=== PATIENT | male | born 1990 | race African-American/Black ===

== ENCOUNTER 2019-08-31 22:09 | Inpatient (IN) | payer MEDICAID, OTHER ==
[~2019-08-31] VITALS: Ht 180.3 cm; Wt 99.8 kg
[2019-08-31] MEDS ORDERED: MORPHINE SULFATE 4 MG/ML CPJ (NOT FOR IM USE) IV STA (23:42)
[2019-08-31] MEDS ORDERED: KETOROLAC 30MG/ML VIAL IV STA (23:42)
[2019-08-31] MEDS ORDERED: ONDANSETRON HCL 4MG/2ML INJ IV STA (23:42)
[2019-08-31] MEDS ORDERED: SODIUM CHLORIDE 0.9% 1,000 ML IV ONE (23:42)
[2019-09-01 00:52] LABS: BASOPHILS % 0.2 % (0.0-2.0); EOSINOPHILS % 0.4 % (0.0-5.0); HEMATOCRIT. 36.8 % (42.0-52.0); HEMOGLOBIN. 12.6 g/dL (14.0-18.0); LYMPHOCYTES % 13.3 % (20.0-50.0); MEAN CORPUSCULAR HEMOGLOBIN 30.3 pg (28.0-32.0); MEAN CORPUSCULAR VOLUME 88.2 fL (80.0-94.0); MEAN PLATELET VOLUME 10.4 fl (7.4-10.4); MONOCYTES % 8.4 % (2.0-8.0); NEUTROPHILS % 77.7 % (40.0-76.0); PLATELET 161 x1000/uL (130-400); RED BLOOD CELL COUNT 4.17 mill/uL (4.7-6.1); RED CELL DISTRIBUTION WIDTH 15.4 % (11.6-14.6)
[2019-09-01 01:00] LABS: CHLORIDE 107 mEq/L (98-107)
[2019-09-01] MEDS ORDERED: MORPHINE SULFATE 4 MG/ML CPJ (NOT FOR IM USE) IV ONE (06:30)
[2019-09-01] MEDS ORDERED: PIPERACILLIN/TAZ 3.375G PREMIX 50 ML IV SCH (10:45)
[2019-09-01] MEDS ORDERED: CLONIDINE 0.1MG TABLET PO PRN (10:45)
[2019-09-01] MEDS ORDERED: GUAIFENESIN 200MG/10ML SUGAR FREE UDC PO PRN (10:45)
[2019-09-01] MEDS ORDERED: IPRATROPIUM/ALBUTEROL 0.5-3(2.5)MG/3ML NEB HHN PRN (10:45)
[2019-09-01] MEDS ORDERED: DOCUSATE SODIUM 100MG CAPSULE PO PRN (10:45)
[2019-09-01] MEDS: SODIUM CHLORIDE 0.9% 1,000 ML IV SCH (11:00)
[2019-09-01 11:11] LABS: PHOSPHORUS 4.6 mg/dL (2.5-4.9)
[2019-09-01] MEDS: HYDROMORPHONE HCL/PF 2MG/ML CPJ IV PRN ×4 (11:29→21:46)
[2019-09-01 12:00] VITALS: BP 142/105
[2019-09-01] MEDS: PIPERACILLIN/TAZOBACTAM 3.375 G in DEXT 5% WATER 100 ML IV SCH ×2 (12:54→18:25)
[2019-09-01] MEDS ORDERED: HYDR-3281 PO (14:32)
[2019-09-01] MEDS ORDERED: BETDL TP (14:32)
[2019-09-01 16:00] VITALS: BP 137/84
[2019-09-01 20:00] VITALS: BP 147/93
[2019-09-01] MEDS: ACETAMINOPHEN 325MG TABLET PO PRN (21:15)
[2019-09-02] VITALS: BP 154/107
[2019-09-02] MEDS: HYDROMORPHONE HCL/PF 2MG/ML CPJ IV PRN ×8 (00:49→22:38)
[2019-09-02] MEDS: PIPERACILLIN/TAZOBACTAM 3.375 G in DEXT 5% WATER 100 ML IV SCH ×4 (00:50→17:33)
[2019-09-02] MEDS: SODIUM CHLORIDE 0.9% 1,000 ML IV SCH ×3 (01:02→16:16)
[2019-09-02 04:00] VITALS: BP 147/86
[2019-09-02 06:30] LABS: HEMATOCRIT. 35.5 % (42.0-52.0); HEMOGLOBIN. 12.4 g/dL (14.0-18.0); MEAN CORPUSCULAR HEMOGLOBIN 30.6 pg (28.0-32.0); MEAN CORPUSCULAR VOLUME 87.4 fL (80.0-94.0); RED BLOOD CELL COUNT 4.06 mill/uL (4.7-6.1); RED CELL DISTRIBUTION WIDTH 15.1 % (11.6-14.6)
[2019-09-02 07:27] LABS: CHLORIDE 105 mEq/L (98-107)
[2019-09-02 07:35] LABS: HDL CHOLESTEROL 51 mg/dL (40-59)
[2019-09-02 07:44] LABS: LDL CHOLESTEROL 46 mg/dL (5-100)
[2019-09-02 08:00] VITALS: BP 159/90
[2019-09-02 10:33] LABS: NUCLEATED RED BLOOD CELLS 8 /100 WBC
[2019-09-02 10:34] LABS: PLATELET ESTIMATE DECREASED
[2019-09-02 10:35] LABS: MEAN PLATELET VOLUME 10.7 fl (7.4-10.4); PLATELET 115 x1000/uL (130-400)
[2019-09-02 12:00] VITALS: BP 138/78
[2019-09-02 16:00] VITALS: BP 140/100
[2019-09-02 20:00] VITALS: BP 147/88
[2019-09-03] VITALS: BP 130/62
[2019-09-03] MEDS: PIPERACILLIN/TAZOBACTAM 3.375 G in DEXT 5% WATER 100 ML IV SCH ×3 (00:22→12:37)
[2019-09-03] MEDS: ACETAMINOPHEN 325MG TABLET PO PRN ×2 (01:35→21:26)
[2019-09-03] MEDS: HYDROMORPHONE HCL/PF 2MG/ML CPJ IV PRN ×5 (01:50→21:25)
[2019-09-03 04:00] VITALS: BP 122/87
[2019-09-03] MEDS: SODIUM CHLORIDE 0.9% 1,000 ML IV SCH ×3 (06:32→23:00)
[2019-09-03 07:27] LABS: HEMATOCRIT. 33.9 % (42.0-52.0); HEMOGLOBIN. 12.1 g/dL (14.0-18.0); MEAN CORPUSCULAR HEMOGLOBIN 30.6 pg (28.0-32.0); MEAN CORPUSCULAR VOLUME 86.2 fL (80.0-94.0); MEAN PLATELET VOLUME 10.6 fl (7.4-10.4); PLATELET 98 x1000/uL (130-400); RED BLOOD CELL COUNT 3.94 mill/uL (4.7-6.1); RED CELL DISTRIBUTION WIDTH 15.1 % (11.6-14.6)
[2019-09-03 07:44] LABS: CHLORIDE 100 mEq/L (98-107)
[2019-09-03 08:00] VITALS: BP 134/85
[2019-09-03 09:54] LABS: NUCLEATED RED BLOOD CELLS 6 /100 WBC; PLATELET ESTIMATE DECREASED
[2019-09-03 12:00] VITALS: BP 131/81
[2019-09-03] MEDS ORDERED: NALOXONE HCL 0.4 MG/ML 1ML VIAL IV PRN (14:30)
[2019-09-03] MEDS: HYDROCODONE/ACETAMINOPHEN 5/325MG TABLET PO PRN (15:42)
[2019-09-03 16:00] VITALS: BP 135/95
[2019-09-03 20:00] VITALS: BP 134/91
[2019-09-04] VITALS: BP 135/84
[2019-09-04] MEDS: HYDROMORPHONE HCL/PF 2MG/ML CPJ IV PRN ×3 (01:08→20:56)
[2019-09-04] MEDS: ONDANSETRON HCL 4MG/2ML INJ IV PRN ×2 (01:17→21:04)
[2019-09-04] MEDS: HYDROCODONE/ACETAMINOPHEN 5/325MG TABLET PO PRN (06:04)
[2019-09-04] MEDS: ACETAMINOPHEN 325MG TABLET PO PRN (06:23)
[2019-09-04 07:09] LABS: CHLORIDE 102 mEq/L (98-107)
[2019-09-04 07:11] LABS: BASOPHILS % 0.3 % (0.0-2.0); EOSINOPHILS % 0.4 % (0.0-5.0); HEMATOCRIT. 34.6 % (42.0-52.0); HEMOGLOBIN. 12.2 g/dL (14.0-18.0); LYMPHOCYTES % 15.5 % (20.0-50.0); MEAN CORPUSCULAR VOLUME 85.4 fL (80.0-94.0); MONOCYTES % 12.7 % (2.0-8.0); NEUTROPHILS % 71.1 % (40.0-76.0); RED BLOOD CELL COUNT 4.05 mill/uL (4.7-6.1); RED CELL DISTRIBUTION WIDTH 15.1 % (11.6-14.6)
[2019-09-04 08:00] VITALS: BP 138/79
[2019-09-04] MEDS: SODIUM CHLORIDE 0.9% 1,000 ML IV SCH (09:00)
[2019-09-04 10:43] LABS: MEAN PLATELET VOLUME 10.6 fl (7.4-10.4); PLATELET 97 x1000/uL (130-400)
[2019-09-04 12:00] VITALS: BP 128/76
[2019-09-04 16:00] VITALS: BP 134/80
[2019-09-04 20:00] VITALS: BP 135/89
[2019-09-05] VITALS (7 sets, daily range): BP systolic 120–143; BP diastolic 58–88
[2019-09-05] MEDS: HYDROMORPHONE HCL/PF 2MG/ML CPJ IV PRN ×5 (00:58→17:21)
[2019-09-05] MEDS: HYDROCODONE/ACETAMINOPHEN 5/325MG TABLET PO PRN (01:49)
[2019-09-05] MEDS: SODIUM CHLORIDE 0.9% 1,000 ML IV SCH ×3 (04:20→14:35)
[2019-09-05 07:04] LABS: HEMATOCRIT. 32.1 % (42.0-52.0); HEMOGLOBIN. 11.4 g/dL (14.0-18.0); MEAN CORPUSCULAR HEMOGLOBIN 30.3 pg (28.0-32.0); MEAN CORPUSCULAR VOLUME 85.6 fL (80.0-94.0); RED BLOOD CELL COUNT 3.76 mill/uL (4.7-6.1); RED CELL DISTRIBUTION WIDTH 15.8 % (11.6-14.6)
[2019-09-05 07:09] LABS: CHLORIDE 102 mEq/L (98-107)
[2019-09-05] MEDS ORDERED: FOLIC ACID 1MG TABLET PO SCH (09:00)
[2019-09-05 13:10] LABS: MEAN PLATELET VOLUME 10.3 fl (7.4-10.4); PLATELET 101 x1000/uL (130-400); PLATELET ESTIMATE DECREASED
== END 2019-09-05 18:10 | disposition home or self-care (01) | DRG 662 ==
LOC: ER 22:21 → EDBEDREQ 09-01 01:20 → 7WST 09-01 03:26 → EDBEDREQ 09-01 03:33 → ENRESERV 09-01 07:11 → CANRESERV 09-01 07:11 → ENRESERV 09-01 09:23
PROVIDERS: ADMIT Internal Medicine; ATTEND Internal Medicine
DX: D57.00 Hb-SS disease with crisis, unspecified (principal); D69.6 Thrombocytopenia, unspecified; F12.90 Cannabis use, unspecified, uncomplicated; D72.829 Elevated white blood cell count, unspecified; L40.9 Psoriasis, unspecified; Z79.899 Other long term (current) drug therapy
CPT/HCPCS: 36415; 71045; 80048; 80053; 80061; 82962; 83735; 84100; 84145; 84443; 84484; 85025; 85044; 85660; 93005; 96361; 96374; 96375; 96376; 99285; J1170; J1885; J2270; J2405; J2543; J7030; J7040; J7060

== ENCOUNTER 2024-09-28 12:56 | Emergency (ER) | payer MEDICAID ==
[~2024-09-28] VITALS: Ht 180.3 cm; Wt 107.0 kg
[~2024-09-28 12:56] MED LIST: BETDL TP; HYDR-4346 PO
[2024-09-28 13:12] VITALS: BP 153/110; PULSE 86; RESP 16; TEMP 98.8; O2SAT 99
[2024-09-28] MEDS ORDERED: ONDANSETRON HCL 4MG/2ML INJ IV STA (13:50)
[2024-09-28] MEDS ORDERED: MORPHINE SULFATE 4 MG/ML INJ (FOR IV/IM USE) IV STA (13:50)
[2024-09-28] MEDS ORDERED: ASPIRIN 81MG TABLET PO ONE (14:00)
[2024-09-28] MEDS ORDERED: SODIUM CHLORIDE 0.9% 1,000 ML IV ONE (14:00)
[2024-09-28 15:16] LABS: CHLORIDE 106 mEq/L (98-107); POTASSIUM 4.4 mEq/L (3.5-5.1); SODIUM 138 mEq/L (136-145)
[2024-09-28 15:17] LABS: CALCIUM 9.9 mg/dL (8.7-10.4); CARBON DIOXIDE 25 mEq/L (21-32)
[2024-09-28 15:22] LABS: CREATININE 1.5 mg/dL (0.6-1.3); GLUCOSE 78 mg/dL (70-105); UREA NITROGEN BLOOD 10 mg/dL (9-23)
[2024-09-28 15:45] LABS: TROPONIN I HIGH SENSITIVITY < 4 ng/L (3.0-53)
[2024-09-28 16:51] LABS: BASOPHILS % 0.6 % (0.0-2.0); EOSINOPHILS % 2.6 % (0.0-5.0); HEMATOCRIT. 38.8 % (42.0-52.0); HEMOGLOBIN. 13.1 g/dL (14.0-18.0); LYMPHOCYTES % 20.7 % (20.0-50.0); MEAN CORPUSCULAR HEMOGLOBIN 29.6 pg (28.0-32.0); MEAN CORPUSCULAR HGB CONC 33.9 g/dL (31.0-37.0); MEAN CORPUSCULAR VOLUME 87.2 fL (80.0-94.0); MEAN PLATELET VOLUME 10.9 fl (7.4-10.4); MONOCYTES % 6.9 % (2.0-8.0); NEUTROPHILS % 69.2 % (40.0-76.0); PLATELET 224 x1000/uL (130-400); RED BLOOD CELL COUNT 4.44 mill/uL (4.7-6.1); RED CELL DISTRIBUTION WIDTH 16.4 % (11.6-14.6); WHITE BLOOD COUNT 14.1 x1000/uL (4.5-11.0)
[2024-09-28 16:52] LABS: DIFFERENTIAL COMMENT 1
== END 2024-09-28 16:13 | disposition home or self-care (01) ==
LOC: ER 12:56
DX: D57.1 Sickle-cell disease without crisis (principal); R07.9 Chest pain, unspecified; Z79.899 Other long term (current) drug therapy; Z98.890 Other specified postprocedural states
CPT/HCPCS: 99285; 71045; 80048; 83880; 85025; 85044; 86850; 86900; 86901; 84484; 36415; 93005; J7030